=== PATIENT | male | born 1955 | race Caucasian/White ===

== ENCOUNTER → 2018-11-19 | Outpatient (CLI) | payer BC ==
--- NOTE | 2018-11-19 10:23 | MR ---
EXAMINATION TYPE: MR knee LT wo con DATE OF EXAM: 11/19/2018 COMPARISON: Plain film 11/05/2018 HISTORY: Lt knee pain/edema TECHNIQUE: Multiplanar, multisequence imaging of the left knee is performed without IV contrast. FINDINGS: MEDIAL MENISCUS: Some linear increased signal within the posterior horn of the medial meniscus does n ot extend to the articular surface. LATERAL MENISCUS: There is some artifact present at the level of the root anchor of the posterior hor n of the lateral meniscus, there is some increased signal within the meniscus at this site, no defini te meniscal tear. CRUCIATE LIGAMENTS: The anterior and posterior cruciate ligaments are intact and unremarkable. COLLATERAL LIGAMENTS: The medial collateral ligament and lateral collateral ligament complex are inta ct and unremarkable. EXTENSOR MECHANISM: Visualized quadriceps and patellar tendons are intact. EFFUSION: Minimal joint fluid present. POPLITEAL CYST: No popliteal/walker cyst. 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 Cluster of grapes cystic appearance at the level of the anchor root of the medial meniscus suggests a gangli on cyst, possible meniscal cyst formation. Suspect loose bodies present near the origin of the origin of the lateral belly of the gastrocnemius muscle measuring approximately 7 mm to 8 mm possible small 8 mm an chondroma in the lateral femoral condyle metaphyseal region. IMPRESSION: Osteoarthritis, chondromalacia patella. Small loose bodies as described. Possible ganglion cyst or me niscal cyst as described. Additional findings above.
== END | disposition home or self-care (01) ==
LOC: RADMRIMAIN 08:57
PROVIDERS: ATTEND Orthopaedic Surgery
DX: M22.42 Chondromalacia patellae, left knee (principal); M17.12 Unilateral primary osteoarthritis, left knee